=== PATIENT | male | born 1980 | race Two or more races ===

== ENCOUNTER 2020-11-01 12:20 | Inpatient (IN) | payer MEDICAID, OTHER ==
[~2020-11-01] VITALS: Ht 175.3 cm; Wt 235.0 kg
[2020-11-01] MEDS ORDERED: FUROSEMIDE 40MG/4ML VIAL IV ONE (13:00)
[2020-11-01] MEDS ORDERED: CEFTRIAXONE 1 G PREMIX 50 ML IV ONE (13:15)
[2020-11-01] MEDS ORDERED: VANCOMYCIN 1 G PREMIX 200 ML IV SCH (13:15)
[2020-11-01 14:09] LABS: BASOPHILS % 0.4 % (0.0-2.0); EOSINOPHILS % 0.5 % (0.0-5.0); HEMATOCRIT. 47.5 % (42.0-52.0); HEMOGLOBIN. 16.1 g/dL (14.0-18.0); LYMPHOCYTES % 23.7 % (20.0-50.0); MEAN CORPUSCULAR HEMOGLOBIN 26.1 pg (28.0-32.0); MONOCYTES % 5.4 % (2.0-8.0); PLATELET 257 x1000/uL (130-400); RED BLOOD CELL COUNT 6.16 mill/uL (4.7-6.1); RED CELL DISTRIBUTION WIDTH 17.5 % (11.6-14.6)
[2020-11-01 14:13] LABS: CHLORIDE 106 mEq/L (98-107)
[2020-11-01 14:14] LABS: PROTHROMBIN TIME 10.3 sec (9.6-11.0)
[2020-11-01 14:17] LABS: CLARITY URINE CLEAR (CLEAR); COLOR URINE YELLOW (YELLOW); KETONES URINE NEGATIVE (NEGATIVE); LEUKOCYTE ESTERASE URINE NEGATIVE (NEGATIVE); NITRITE URINE NEGATIVE (NEGATIVE); OCCULT BLOOD URINE NEGATIVE (NEGATIVE); PROTEIN URINE NEGATIVE (NEGATIVE); SPECIFIC GRAVITY URINE 1.004 (1.005-1.030); UROBILINOGEN URINE 0.2 E.U./dL (0.2-1.0)
[2020-11-02] VITALS (8 sets, daily range): BP systolic 133–173; BP diastolic 79–87
[2020-11-02] MEDS ORDERED: DEXTROSE 50% WATER 50ML SYRINGE IV PRN (01:45)
[2020-11-02] MEDS ORDERED: PIPERACILLIN/TAZOBACTAM 3.375 G in DEXTROSE 5% WATER 50 ML IV SCH (03:00)
[2020-11-02] MEDS ORDERED: VANCOMYCIN 1500MG in DEXTROSE 5% WATER 250ML IV SCH (04:00)
[2020-11-02] MEDS ORDERED: MORPHINE SULFATE 2 MG/ML CPJ (NOT FOR IM USE) IV PRN (04:15)
[2020-11-02] MEDS: PIPERACILLIN/TAZOBACTAM 3.375 G in DEXTROSE 5% WATER 50 ML IV SCH ×2 (05:47→13:08)
[2020-11-02] MEDS ORDERED: PIPERACILLIN/TAZOBACTAM 3.375 G/VIAL IV SCH (06:00)
[2020-11-02] MEDS: VANCOMYCIN 1,500 MG in DEXT 5% WATER 250 ML IV SCH ×3 (06:48→22:59)
[2020-11-02] MEDS: BLOOD SUGAR DIAGNOSTIC STRIP TEST SCH ×4 (07:20→21:52)
[2020-11-02] MEDS: INSULIN LISPRO 100 UNITS/ML SUBCUT SCH ×4 (07:50→21:00)
[2020-11-02] MEDS ORDERED: METF-873 PO (07:51)
[2020-11-02] MEDS ORDERED: LOPHC2 PO (07:51)
[2020-11-02] MEDS ORDERED: FURO-151 PO (07:51)
[2020-11-02 08:30] LABS: BASOPHILS % 0.6 % (0.0-2.0); EOSINOPHILS % 1.1 % (0.0-5.0); HEMATOCRIT. 44.9 % (42.0-52.0); HEMOGLOBIN. 15.2 g/dL (14.0-18.0); LYMPHOCYTES % 20.9 % (20.0-50.0); MEAN CORPUSCULAR HEMOGLOBIN 26.3 pg (28.0-32.0); MEAN CORPUSCULAR VOLUME 77.7 fL (80.0-94.0); MEAN PLATELET VOLUME 7.1 fl (7.4-10.4); NEUTROPHILS % 70.4 % (40.0-76.0); PLATELET 209 x1000/uL (130-400); RED BLOOD CELL COUNT 5.78 mill/uL (4.7-6.1); RED CELL DISTRIBUTION WIDTH 17.6 % (11.6-14.6)
[2020-11-02] MEDS ORDERED: ENOXAPARIN 40MG/0.4ML SYR SUBCUT SCH (09:00)
[2020-11-02] MEDS ORDERED: FUROSEMIDE 40MG TABLET PO SCH (09:00)
[2020-11-02] MEDS ORDERED: LISINOPRIL 20MG TABLET PO SCH (09:00)
[2020-11-02 09:05] LABS: CHLORIDE 103 mEq/L (98-107)
[2020-11-02] MEDS: FAMOTIDINE 20MG TABLET PO SCH ×2 (09:09→21:54)
[2020-11-02] MEDS: ENOXAPARIN 40MG/0.4ML SYR SUBCUT SCH ×2 (09:10→21:57)
[2020-11-02] MEDS: TRIAMCINOLONE ACETONIDE 0.1 % OINT 15GM TOP SCH ×2 (09:10→21:57)
[2020-11-02 09:13] LABS: HDL CHOLESTEROL 53 mg/dL (40-59)
[2020-11-02 09:14] LABS: LDL CHOLESTEROL 100 mg/dL (5-100)
[2020-11-02] MEDS ORDERED: PNEUMOCOCCAL 23-VAL P-SAC VAC 0.5 ML IM ONE (12:00)
[2020-11-02] MEDS: LISINOPRIL 20MG TABLET PO SCH ×2 (13:08→18:12)
[2020-11-02] MEDS: HYDROCODONE/ACETAMINOPHEN 5/325MG TABLET PO PRN ×2 (13:31→21:57)
[2020-11-02] MEDS ORDERED: VANCOMYCIN 1,500 MG in DEXT 5% WATER 250 ML IV SCH (14:00)
[2020-11-02] MEDS: AMLODIPINE 10MG TABLET PO SCH (18:12)
[2020-11-02] MEDS: FUROSEMIDE 40MG/4ML VIAL IVP SCH (18:12)
[2020-11-02] MEDS: PIPERACILLIN/TAZOBACTAM 3.375G in DEXT 5% WATER 50ML IV SCH (21:52)
[2020-11-03] MEDS: PIPERACILLIN/TAZOBACTAM 3.375G in DEXT 5% WATER 50ML IV SCH ×3 (02:35→11:43)
[2020-11-03 03:31] LABS: CHLORIDE 100 mEq/L (98-107)
[2020-11-03 04:59] VITALS: BP 140/79
[2020-11-03] MEDS: VANCOMYCIN 1,500 MG in DEXT 5% WATER 250 ML IV SCH ×2 (06:17→13:14)
[2020-11-03] MEDS: BLOOD SUGAR DIAGNOSTIC STRIP TEST SCH ×2 (06:23→12:20)
[2020-11-03] MEDS: INSULIN LISPRO 100 UNITS/ML SUBCUT SCH ×2 (07:28→12:50)
[2020-11-03 08:00] VITALS: BP 129/73
[2020-11-03] MEDS: FAMOTIDINE 20MG TABLET PO SCH ×2 (09:00→21:25)
[2020-11-03] MEDS: AMLODIPINE 10MG TABLET PO SCH (09:51)
[2020-11-03] MEDS: LISINOPRIL 20MG TABLET PO SCH ×2 (09:52→17:00)
[2020-11-03] MEDS: FUROSEMIDE 40MG/4ML VIAL IVP SCH ×3 (09:52→16:59)
[2020-11-03] MEDS: ENOXAPARIN 40MG/0.4ML SYR SUBCUT SCH ×2 (09:53→21:25)
[2020-11-03] MEDS: TRIAMCINOLONE ACETONIDE 0.1 % OINT 15GM TOP SCH ×2 (11:47→21:25)
[2020-11-03 12:00] VITALS: BP 135/76
[2020-11-03 16:00] VITALS: BP 144/79
[2020-11-03] MEDS: HYDROCODONE/ACETAMINOPHEN 5/325MG TABLET PO PRN (17:00)
[2020-11-03 20:00] VITALS: BP 139/76
[2020-11-03] MEDS: AMOXICILLIN/POTASSIUM CLAVULANATE 875/125MG TAB PO SCH (21:25)
[2020-11-03] MEDS: SULFAMETHOXAZOLE/TRIMETHOPRIM 800/160MG TABLET PO SCH (21:25)
[2020-11-04] VITALS: BP 146/69
[2020-11-04 04:00] VITALS: BP 127/73
[2020-11-04 08:00] VITALS: BP 128/77
[2020-11-04] MEDS: SULFAMETHOXAZOLE/TRIMETHOPRIM 800/160MG TABLET PO SCH ×2 (09:15→21:01)
[2020-11-04] MEDS: AMOXICILLIN/POTASSIUM CLAVULANATE 875/125MG TAB PO SCH ×2 (09:16→21:01)
[2020-11-04] MEDS: FAMOTIDINE 20MG TABLET PO SCH ×2 (09:16→21:01)
[2020-11-04] MEDS: AMLODIPINE 10MG TABLET PO SCH (09:17)
[2020-11-04] MEDS: FUROSEMIDE 40MG/4ML VIAL IVP SCH ×2 (09:17→17:31)
[2020-11-04] MEDS: LISINOPRIL 20MG TABLET PO SCH ×2 (09:17→17:31)
[2020-11-04] MEDS: ENOXAPARIN 40MG/0.4ML SYR SUBCUT SCH ×2 (09:18→21:01)
[2020-11-04] MEDS: TRIAMCINOLONE ACETONIDE 0.1 % OINT 15GM TOP SCH ×2 (10:02→21:02)
[2020-11-04 12:00] VITALS: BP 151/94
[2020-11-04] MEDS: HYDROCODONE/ACETAMINOPHEN 5/325MG TABLET PO PRN (14:25)
[2020-11-04] MEDS ORDERED: POTA20TA82 MT (15:37)
[2020-11-04] MEDS ORDERED: SULF1TAB44 PO (15:37)
[2020-11-04] MEDS ORDERED: LISI20TA31 PO (15:37)
[2020-11-04] MEDS ORDERED: AMLO10TA80 PO (15:37)
[2020-11-04] MEDS ORDERED: AMOX1TAB16 PO (15:37)
[2020-11-04] MEDS ORDERED: FURO-151 MT (15:37)
[2020-11-04 16:00] VITALS: BP 129/72
[2020-11-04 20:00] VITALS: BP 125/72
[2020-11-04] MEDS: ATORVASTATIN CALCIUM 40MG TABLET PO SCH (21:05)
[2020-11-05] VITALS: BP 123/79
[2020-11-05 04:00] VITALS: BP 133/65
[2020-11-05] MEDS: METFORMIN HCL 500MG TABLET PO SCH (06:36)
[2020-11-05 08:00] VITALS: BP 129/74
[2020-11-05] MEDS: AMOXICILLIN/POTASSIUM CLAVULANATE 875/125MG TAB PO SCH ×2 (09:05→20:21)
[2020-11-05] MEDS: FAMOTIDINE 20MG TABLET PO SCH ×2 (09:06→20:22)
[2020-11-05] MEDS: SULFAMETHOXAZOLE/TRIMETHOPRIM 800/160MG TABLET PO SCH ×2 (09:06→20:21)
[2020-11-05] MEDS: AMLODIPINE 10MG TABLET PO SCH (09:06)
[2020-11-05] MEDS: FUROSEMIDE 40MG/4ML VIAL IVP SCH ×2 (09:07→16:12)
[2020-11-05] MEDS: HYDROCODONE/ACETAMINOPHEN 5/325MG TABLET PO PRN ×2 (09:07→20:29)
[2020-11-05] MEDS: ENOXAPARIN 40MG/0.4ML SYR SUBCUT SCH ×2 (09:08→20:23)
[2020-11-05] MEDS: LISINOPRIL 20MG TABLET PO SCH ×2 (09:08→16:12)
[2020-11-05] MEDS: TRIAMCINOLONE ACETONIDE 0.1 % OINT 15GM TOP SCH ×2 (09:09→20:23)
[2020-11-05 16:00] VITALS: BP 124/82
[2020-11-05 20:00] VITALS: BP 157/94
[2020-11-05] MEDS: ATORVASTATIN CALCIUM 40MG TABLET PO SCH (20:21)
[2020-11-06] VITALS: BP 118/67
[2020-11-06 04:00] VITALS: BP 139/69
[2020-11-06] MEDS: METFORMIN HCL 500MG TABLET PO SCH (06:26)
[2020-11-06 08:00] VITALS: BP 123/75
[2020-11-06] MEDS: AMOXICILLIN/POTASSIUM CLAVULANATE 875/125MG TAB PO SCH ×2 (10:00→21:47)
[2020-11-06] MEDS: SULFAMETHOXAZOLE/TRIMETHOPRIM 800/160MG TABLET PO SCH ×2 (10:00→21:47)
[2020-11-06] MEDS: LISINOPRIL 20MG TABLET PO SCH ×2 (10:00→18:27)
[2020-11-06] MEDS: FUROSEMIDE 40MG/4ML VIAL IVP SCH ×2 (10:00→18:26)
[2020-11-06] MEDS: FAMOTIDINE 20MG TABLET PO SCH ×2 (10:01→21:47)
[2020-11-06] MEDS: AMLODIPINE 10MG TABLET PO SCH (10:01)
[2020-11-06] MEDS: ENOXAPARIN 40MG/0.4ML SYR SUBCUT SCH ×2 (10:02→21:46)
[2020-11-06] MEDS: TRIAMCINOLONE ACETONIDE 0.1 % OINT 15GM TOP SCH ×2 (10:03→21:47)
[2020-11-06 12:00] VITALS: BP 130/67
[2020-11-06 16:00] VITALS: BP 152/78
[2020-11-06 20:00] VITALS: BP 117/48
[2020-11-06] MEDS: ATORVASTATIN CALCIUM 40MG TABLET PO SCH (21:47)
[2020-11-07] VITALS: BP 135/58
[2020-11-07 04:00] VITALS: BP 146/77
[2020-11-07] MEDS: HYDROCODONE/ACETAMINOPHEN 5/325MG TABLET PO PRN ×2 (05:17→17:26)
[2020-11-07] MEDS: METFORMIN HCL 500MG TABLET PO SCH (06:27)
[2020-11-07 08:00] VITALS: BP 123/62
[2020-11-07] MEDS: SULFAMETHOXAZOLE/TRIMETHOPRIM 800/160MG TABLET PO SCH ×2 (09:28→21:01)
[2020-11-07] MEDS: AMOXICILLIN/POTASSIUM CLAVULANATE 875/125MG TAB PO SCH ×2 (09:28→20:58)
[2020-11-07] MEDS: FAMOTIDINE 20MG TABLET PO SCH ×2 (09:28→20:58)
[2020-11-07] MEDS: LISINOPRIL 20MG TABLET PO SCH ×2 (09:29→17:26)
[2020-11-07] MEDS: FUROSEMIDE 40MG/4ML VIAL IVP SCH ×2 (09:29→17:26)
[2020-11-07] MEDS: AMLODIPINE 10MG TABLET PO SCH (09:29)
[2020-11-07] MEDS: ENOXAPARIN 40MG/0.4ML SYR SUBCUT SCH ×2 (09:32→20:58)
[2020-11-07] MEDS: TRIAMCINOLONE ACETONIDE 0.1 % OINT 15GM TOP SCH ×2 (09:37→20:58)
[2020-11-07 12:00] VITALS: BP 106/63
[2020-11-07 16:00] VITALS: BP 157/76
[2020-11-07 20:00] VITALS: BP 134/72
[2020-11-07] MEDS: ATORVASTATIN CALCIUM 40MG TABLET PO SCH (20:58)
[2020-11-08] VITALS: BP 126/78
[2020-11-08 04:00] VITALS: BP 126/71
[2020-11-08] MEDS: METFORMIN HCL 500MG TABLET PO SCH (07:01)
[2020-11-08 08:00] VITALS: BP 132/88
[2020-11-08] MEDS: FUROSEMIDE 40MG/4ML VIAL IVP SCH ×2 (10:36→17:56)
[2020-11-08] MEDS: SULFAMETHOXAZOLE/TRIMETHOPRIM 800/160MG TABLET PO SCH ×2 (10:38→20:46)
[2020-11-08] MEDS: AMOXICILLIN/POTASSIUM CLAVULANATE 875/125MG TAB PO SCH ×2 (10:38→20:47)
[2020-11-08] MEDS: FAMOTIDINE 20MG TABLET PO SCH ×2 (10:38→20:47)
[2020-11-08] MEDS: LISINOPRIL 20MG TABLET PO SCH ×2 (10:39→17:56)
[2020-11-08] MEDS: ENOXAPARIN 40MG/0.4ML SYR SUBCUT SCH ×2 (10:40→20:49)
[2020-11-08] MEDS: AMLODIPINE 10MG TABLET PO SCH (10:40)
[2020-11-08] MEDS: TRIAMCINOLONE ACETONIDE 0.1 % OINT 15GM TOP SCH ×2 (10:41→20:50)
[2020-11-08] MEDS: HYDROCODONE/ACETAMINOPHEN 5/325MG TABLET PO PRN (13:05)
[2020-11-08 20:00] VITALS: BP 128/83
[2020-11-08] MEDS: ATORVASTATIN CALCIUM 40MG TABLET PO SCH (20:46)
[2020-11-09] VITALS: BP 128/66
[2020-11-09 04:00] VITALS: BP 124/74
[2020-11-09] MEDS: METFORMIN HCL 500MG TABLET PO SCH (06:33)
[2020-11-09 08:00] VITALS: BP_DIAS 134
[2020-11-09] MEDS: FUROSEMIDE 40MG/4ML VIAL IVP SCH (09:20)
[2020-11-09] MEDS: AMLODIPINE 10MG TABLET PO SCH (09:20)
[2020-11-09] MEDS: FAMOTIDINE 20MG TABLET PO SCH ×2 (09:21→21:15)
[2020-11-09] MEDS: TRIAMCINOLONE ACETONIDE 0.1 % OINT 15GM TOP SCH ×2 (09:21→21:18)
[2020-11-09] MEDS: LISINOPRIL 20MG TABLET PO SCH ×2 (09:21→18:06)
[2020-11-09] MEDS: ENOXAPARIN 40MG/0.4ML SYR SUBCUT SCH ×2 (09:22→21:17)
[2020-11-09] MEDS ORDERED: METF-414 MT (10:28)
[2020-11-09] MEDS ORDERED: TC1U15 TOP (12:23)
[2020-11-09] MEDS: HYDROCODONE/ACETAMINOPHEN 5/325MG TABLET PO PRN ×2 (12:51→21:17)
[2020-11-09 16:00] VITALS: BP 118/61
[2020-11-09 20:00] VITALS: BP 161/73
[2020-11-09] MEDS: ATORVASTATIN CALCIUM 40MG TABLET PO SCH (21:15)
[2020-11-10] VITALS: BP 163/59
[2020-11-10 04:00] VITALS: BP 138/80
[2020-11-10] MEDS: METFORMIN HCL 500MG TABLET PO SCH (06:20)
[2020-11-10 08:00] VITALS: BP 132/82
[2020-11-10] MEDS: FUROSEMIDE 40MG TABLET PO SCH (09:26)
[2020-11-10] MEDS: FAMOTIDINE 20MG TABLET PO SCH ×2 (09:28→20:37)
[2020-11-10] MEDS: AMLODIPINE 10MG TABLET PO SCH (09:28)
[2020-11-10] MEDS: ENOXAPARIN 40MG/0.4ML SYR SUBCUT SCH ×2 (09:29→20:38)
[2020-11-10] MEDS: LISINOPRIL 20MG TABLET PO SCH ×2 (09:29→16:49)
[2020-11-10] MEDS: TRIAMCINOLONE ACETONIDE 0.1 % OINT 15GM TOP SCH ×2 (09:30→20:41)
[2020-11-10] MEDS: HYDROCODONE/ACETAMINOPHEN 5/325MG TABLET PO PRN ×2 (09:31→15:38)
[2020-11-10 12:00] VITALS: BP 142/96
[2020-11-10 16:00] VITALS: BP 129/86
[2020-11-10 20:00] VITALS: BP 150/73
[2020-11-10] MEDS: ATORVASTATIN CALCIUM 40MG TABLET PO SCH (20:37)
[2020-11-11] VITALS: BP 108/80
[2020-11-11 04:00] VITALS: BP 132/65
[2020-11-11] MEDS: METFORMIN HCL 500MG TABLET PO SCH (06:09)
[2020-11-11] MEDS: HYDROCODONE/ACETAMINOPHEN 5/325MG TABLET PO PRN (06:09)
[2020-11-11 06:23] LABS: BASOPHILS % 0.7 % (0.0-2.0); CHLORIDE 105 mEq/L (98-107); EOSINOPHILS % 1.8 % (0.0-5.0); HEMATOCRIT. 47.3 % (42.0-52.0); HEMOGLOBIN. 15.6 g/dL (14.0-18.0); LYMPHOCYTES % 30.2 % (20.0-50.0); MEAN CORPUSCULAR HEMOGLOBIN 26.2 pg (28.0-32.0); MEAN PLATELET VOLUME 7.6 fl (7.4-10.4); MONOCYTES % 8.2 % (2.0-8.0); NEUTROPHILS % 59.1 % (40.0-76.0); PLATELET 221 x1000/uL (130-400); RED BLOOD CELL COUNT 5.98 mill/uL (4.7-6.1); RED CELL DISTRIBUTION WIDTH 17.7 % (11.6-14.6)
[2020-11-11 08:00] VITALS: BP 131/75
[2020-11-11] MEDS: ENOXAPARIN 40MG/0.4ML SYR SUBCUT SCH (08:58)
[2020-11-11] MEDS: FUROSEMIDE 40MG TABLET PO SCH (08:58)
[2020-11-11] MEDS: FAMOTIDINE 20MG TABLET PO SCH (08:58)
[2020-11-11] MEDS: TRIAMCINOLONE ACETONIDE 0.1 % OINT 15GM TOP SCH (08:59)
[2020-11-11] MEDS: AMLODIPINE 10MG TABLET PO SCH (08:59)
[2020-11-11] MEDS: LISINOPRIL 20MG TABLET PO SCH (08:59)
[2020-11-11 09:13] VITALS: BP 131/75
== END 2020-11-11 09:35 | DRG 383 ==
LOC: EDBD 12:20 → ER 12:20 → 6EST 16:04 → ENRESERV 22:02 → 6EST 11-02 00:27
PROVIDERS: ADMIT Internal Medicine; ATTEND Internal Medicine
PROC: 0HBRXZZ Excision of Toe Nail, External Approach (ICD-10-PCS; principal; 2020-11-09)
PROC: 0HBRXZZ Excision of Toe Nail, External Approach (ICD-10-PCS; 2020-11-09)
PROC: 0HBRXZZ Excision of Toe Nail, External Approach (ICD-10-PCS; 2020-11-09)
PROC: 0HBRXZZ Excision of Toe Nail, External Approach (ICD-10-PCS; 2020-11-09)
PROC: 0HBRXZZ Excision of Toe Nail, External Approach (ICD-10-PCS; 2020-11-09)
PROC: 0HBRXZZ Excision of Toe Nail, External Approach (ICD-10-PCS; 2020-11-09)
PROC: 0HBRXZZ Excision of Toe Nail, External Approach (ICD-10-PCS; 2020-11-09)
PROC: 0HBRXZZ Excision of Toe Nail, External Approach (ICD-10-PCS; 2020-11-09)
PROC: 0HBRXZZ Excision of Toe Nail, External Approach (ICD-10-PCS; 2020-11-09)
PROC: 0HBRXZZ Excision of Toe Nail, External Approach (ICD-10-PCS; 2020-11-09)
DX: L03.115 Cellulitis of right lower limb (principal); I50.33 Acute on chronic diastolic (congestive) heart failure; E66.01 Morbid (severe) obesity due to excess calories; I87.2 Venous insufficiency (chronic) (peripheral); E11.9 Type 2 diabetes mellitus without complications; Z20.822 Contact with and (suspected) exposure to COVID-19; L60.2 Onychogryphosis; I11.0 Hypertensive heart disease with heart failure; Z79.2 Long term (current) use of antibiotics; Z79.84 Long term (current) use of oral hypoglycemic drugs; Z79.899 Other long term (current) drug therapy; Z71.3 Dietary counseling and surveillance; Z68.45 Body mass index [BMI] 70 or greater, adult
CPT/HCPCS: 36415; 71045; 80048; 80053; 80061; 80202; 81003; 82962; 83036; 83605; 83880; 84550; 85025; 87426; 90732; 93005; 93306; 93970; 97116; 97161; 97166; 97530; 97535; 99285; C1893; J0696; J1650; J1940; J2270; J2543; J3370; J7040; J7060